=== PATIENT | female | born 1930 | race Caucasian/White ===

== ENCOUNTER 2019-06-05 17:12 | Inpatient (IN) ==
[2019-06-06] MEDS ORDERED: Albuterol 2.5 MG/3 ML NEBULIZER IH PRN (15:24)
[2019-06-06] MEDS: Acetaminophen 325 MG TABLET PO SCH ×2 (19:02→20:27)
[2019-06-06] MEDS: Gabapentin 400 MG CAPSULE PO SCH (20:27)
[2019-06-06] MEDS: cloNIDine HCl 0.1 MG TABLET PO SCH (20:27)
[2019-06-06] MEDS: Doxycycline 100 MG CAPSULE PO SCH (20:27)
[2019-06-07] MEDS: Acetaminophen 325 MG TABLET PO SCH ×5 (01:58→15:33)
[2019-06-07 07:17] LABS: Basophils % 0.4 %; Eosinophils # 0.1 K/mcL (0.0-0.6); Eosinophils % 1.4 %; Hematocrit 36.2 % (35.3-44.9); Hemoglobin 11.4 g/dL (11.5-15.4); Immature Granulocytes % 0.2 % (0-4); Lymphocytes # 2.1 K/mcL (0.6-4.6); Lymphocytes % 24.6 %; Mean Corpuscular HGB Conc 31.5 g/dL (31.6-35.5); Mean Corpuscular Hemoglobin 27.1 pg (28.0-33.3); Mean Corpuscular Volume 86.2 fL (83.0-100.0); Mean Platelet Volume 9.7 fL (9.4-12.4); Monocytes # 0.7 K/mcL (0.0-1.3); Monocytes % 8.4 %; Neutrophils # 5.5 K/mcL (1.6-8.9); Platelet Count 251 K/mcL (140-400); Red Cell Distribution Width 14.6 % (11.5-14.5); White Blood Count 8.5 K/mcL (4.3-11.1)
[2019-06-07 07:35] LABS: BUN/Creatinine Ratio 14 (6-26); Blood Urea Nitrogen 10 mg/dL (8-23); Calcium 8.4 mg/dL (8.6-10.3); Carbon Dioxide 29 mEq/L (23-29); Chloride 102 mEq/L (98-107); Glucose 96 mg/dL (70-105); Osmolality,Calculated 283 (280-300); Potassium 4.1 mEq/L (3.5-5.1); Sodium 137 mEq/L (136-145); eGFR For African Americans > 60 (> 60); eGFR For Non-African Americans > 60 (> 60)
[2019-06-07] MEDS: cloNIDine HCl 0.1 MG TABLET PO SCH (08:58)
[2019-06-07] MEDS: Gabapentin 400 MG CAPSULE PO SCH ×3 (08:58→21:50)
[2019-06-07] MEDS: Doxycycline 100 MG CAPSULE PO SCH ×2 (08:58→21:50)
[2019-06-07] MEDS: Diltiazem CD (24hr) 180 MG CAPSULE PO SCH (08:58)
[2019-06-07] MEDS ORDERED: 0.9 % Sodium Chloride 1,000 ML ONE ×2 (18:31→18:49)
[2019-06-07 19:00] LABS: Basophils % 0.4 %; Eosinophils # 0.1 K/mcL (0.0-0.6); Eosinophils % 0.9 %; Hematocrit 34.8 % (35.3-44.9); Immature Granulocytes % 0.2 % (0-4); Lymphocytes # 2.9 K/mcL (0.6-4.6); Lymphocytes % 31.6 %; Mean Corpuscular HGB Conc 31.6 g/dL (31.6-35.5); Mean Corpuscular Hemoglobin 27.4 pg (28.0-33.3); Mean Corpuscular Volume 86.8 fL (83.0-100.0); Mean Platelet Volume 10.1 fL (9.4-12.4); Monocytes # 0.8 K/mcL (0.0-1.3); Monocytes % 9.3 %; Neutrophils # 5.2 K/mcL (1.6-8.9); Platelet Count 256 K/mcL (140-400); Red Blood Count 4.01 M/mcL (3.82-4.97); Red Cell Distribution Width 14.8 % (11.5-14.5); Segmented Neutrophils % 57.6 %; White Blood Count 9.1 K/mcL (4.3-11.1)
[2019-06-07 19:03] LABS: INR 1.2; Prothrombin Time 13.8 Seconds (9.4-12.1)
[2019-06-07 19:05] LABS: Activated Partial Thrombo Time 27.4 Seconds (26.0-36.0)
[2019-06-07 19:10] LABS: Alanine Aminotransferase 5 Units/L (7-52); Albumin 3.4 g/dL (3.5-5.7); Alkaline Phosphatase 66 Units/L (34-104); Aspartate Amino Transferase 12 Units/L (13-39); BUN/Creatinine Ratio 12 (6-26); Bilirubin,Total 0.4 mg/dL (0.3-1.0); Blood Urea Nitrogen 13 mg/dL (8-23); Calcium 8.8 mg/dL (8.6-10.3); Carbon Dioxide 27 mEq/L (23-29); Chloride 103 mEq/L (98-107); Globulin 3.3 g/dL (2.4-3.5); Glucose 103 mg/dL (70-105); Magnesium 1.7 mg/dL (1.6-2.6); Osmolality,Calculated 284 (280-300); Potassium 3.7 mEq/L (3.5-5.1); Sodium 137 mEq/L (136-145); Total Protein 6.7 g/dL (6.4-8.9); eGFR For African Americans 60 (> 60); eGFR For Non-African Americans 49 (> 60)
[2019-06-07 19:23] LABS: Troponin I < 0.03 ng/mL (< 0.04)
[2019-06-07] MEDS: 0.9 % Sodium Chloride 1,000 ML IVC SCH (19:59)
[2019-06-08] MEDS: 0.9 % Sodium Chloride 1,000 ML IVC SCH ×3 (06:15→19:40)
[2019-06-08] MEDS: Apixaban 5 MG TABLET PO SCH ×2 (10:31→21:50)
[2019-06-08] MEDS: Gabapentin 400 MG CAPSULE PO SCH ×3 (10:31→21:50)
[2019-06-08] MEDS: Doxycycline 100 MG CAPSULE PO SCH ×2 (10:31→21:50)
[2019-06-08] MEDS: Diltiazem CD (24hr) 180 MG CAPSULE PO SCH (11:57)
[2019-06-08] MEDS: cloNIDine HCl 0.1 MG TABLET PO SCH ×2 (11:57→22:57)
[2019-06-08] MEDS: clonazePAM 0.5 MG TABLET PO PRN (21:50)
[2019-06-09] MEDS: 0.9 % Sodium Chloride 1,000 ML IVC SCH ×2 (05:26→15:17)
[2019-06-09] MEDS: Gabapentin 400 MG CAPSULE PO SCH ×3 (08:32→21:36)
[2019-06-09] MEDS: Doxycycline 100 MG CAPSULE PO SCH ×2 (08:32→21:36)
[2019-06-09] MEDS: Apixaban 5 MG TABLET PO SCH ×2 (08:32→21:36)
[2019-06-09] MEDS: Diltiazem CD (24hr) 180 MG CAPSULE PO SCH (08:33)
[2019-06-09] MEDS: cloNIDine HCl 0.1 MG TABLET PO SCH ×2 (08:33→21:36)
[2019-06-09] MEDS: clonazePAM 0.5 MG TABLET PO PRN (21:36)
[2019-06-09] MEDS: Sennosides/Docusate Sodium TABLET PO SCH (21:44)
[2019-06-10] MEDS: Doxycycline 100 MG CAPSULE PO SCH ×2 (09:11→21:36)
[2019-06-10] MEDS: Gabapentin 400 MG CAPSULE PO SCH ×3 (09:11→21:36)
[2019-06-10] MEDS: Apixaban 5 MG TABLET PO SCH ×2 (09:11→21:36)
[2019-06-10] MEDS: Diltiazem CD (24hr) 180 MG CAPSULE PO SCH (09:11)
[2019-06-10] MEDS: Sennosides/Docusate Sodium TABLET PO SCH (09:12)
[2019-06-10] MEDS: cloNIDine HCl 0.1 MG TABLET PO SCH ×2 (09:13→21:36)
[2019-06-10] MEDS: Acetaminophen 325 MG TABLET PO PRN (21:37)
[2019-06-10] MEDS: clonazePAM 0.5 MG TABLET PO PRN (21:39)
[2019-06-11] MEDS: Doxycycline 100 MG CAPSULE PO SCH ×2 (09:09→21:41)
[2019-06-11] MEDS: Sennosides/Docusate Sodium TABLET PO SCH (09:10)
[2019-06-11] MEDS: Apixaban 5 MG TABLET PO SCH ×2 (09:10→21:41)
[2019-06-11] MEDS: Diltiazem CD (24hr) 180 MG CAPSULE PO SCH (09:10)
[2019-06-11] MEDS: Gabapentin 400 MG CAPSULE PO SCH ×3 (09:10→21:41)
[2019-06-11] MEDS: cloNIDine HCl 0.1 MG TABLET PO SCH (09:10)
[2019-06-11] MEDS ORDERED: rOPINIRole 0.25 MG TABLET PO SCH (21:00)
[2019-06-11] MEDS: clonazePAM 0.5 MG TABLET PO PRN (21:41)
[2019-06-11] MEDS: Acetaminophen 325 MG TABLET PO PRN (21:41)
[2019-06-12 07:16] VITALS: BP 130/83
[2019-06-12] MEDS: Doxycycline 100 MG CAPSULE PO SCH (08:40)
[2019-06-12] MEDS: Gabapentin 400 MG CAPSULE PO SCH ×2 (08:40→15:52)
[2019-06-12] MEDS: Sennosides/Docusate Sodium TABLET PO SCH (08:41)
[2019-06-12] MEDS: Diltiazem CD (24hr) 180 MG CAPSULE PO SCH (08:41)
[2019-06-12] MEDS: Apixaban 5 MG TABLET PO SCH (08:41)
[2019-06-12] MEDS: clonazePAM 0.5 MG TABLET PO PRN (08:45)
== END 2019-06-12 16:42 | disposition home or self-care (01) | DRG 57 ==
LOC: INPPIK 06-06 17:14
PROVIDERS: ADMIT Family Medicine; ATTEND Family Medicine